=== PATIENT | male | born 1940 | race Caucasian/White ===

== ENCOUNTER → 2019-02-09 | Outpatient (CLI) | payer MEDICARE, BC ==
--- NOTE | 2019-02-09 13:21 | MRI ---
EXAM DESCRIPTION: Lumbar Spine w/o Contrast : Magnetic Resonance Imaging. CLINICAL HISTORY: LOW BACK PAIN COMPARISON: None. TECHNIQUE: Multiplanar, multiple standard sequences, non contrast MRI, lumbar spine. FINDINGS: L5-S1: The disc is well visualized on axial T2 series 501, image 3. Disc is desiccated with minimal disc space loss. Anterior left disc bulge and spur formation. No posterior bulging. Bilateral degenerative hypertrophy in the facet joints and posterior flavum ligaments. Mild canal narrowing. Mild to moderate narrowing of the right foramen and borderline stenosis left foramen abutting the exiting left L5 nerve. Deformity of the left L5 pars interarticularis with a hypointense line noted in the right pars but no separation or displacement. L4-L5: Disc desiccation and disc space loss with moderate endplate reactive changes to the left of midline encroaching on the soft tissues and the left foramen abutting the left L4 nerve. Trace anterolisthesis. Previous partial left laminectomy and decompression. Minimal arthrosis in the residual left posterior facet. Moderate to severe left foraminal narrowing. Mild narrowing left foramen. Effacement of the left subarticular recess encroaching on the descending left L5 nerve. L3-L4: Disc desiccation with anterior bulging and spurs more to the right of midline. Posterior bulge and 3 mm grade 1 anterolisthesis. Moderate degenerative hypertrophy of the posterior elements, left more than right narrowing of the posterior canal. AP canal diameter 9 mm. Mild left foraminal narrowing and mild to moderate right foraminal narrowing. Bilateral subarticular recess narrowing. L2-L3: Disc desiccation with no significant bulging posteriorly. Hyperintense T2 weighted annular fissure in the posterior mid margin. Trace anterolisthesis. Mild degenerative hypertrophy of the posterior elements with mild canal narrowing. Canal patent. Mild bilateral foraminal narrowing. L1-L2: Disc desiccation with anterior bulging and endplate ridging. No posterior bulging. Minimal degenerative hypertrophy of the posterior elements. Canal is patent. No foraminal narrowing. T12-L1: Normal signal in the disc with disc space preserved. Anterior bulging and endplate ridging. No posterior bulging. Mild degenerative hypertrophic posterior elements. Canal and foramina are patent. Conus terminates at this level. L1-L4 levoscoliosis. Paravertebral soft tissues paraspinal muscle atrophy.. Distal cord normal signal and caliber. Normal marrow signal in the remaining vertebral bodies and the posterior elements. Vertebral bodies are not compressed at any level. IMPRESSION: 1. Multiple levels of the desiccated discs, endplate spondylosis, degenerative hypertrophy of the posterior flavum ligaments and facet joints, and degenerative scoliosis. 2. Spondylosis at L5-S1 more superior to the left of midline with borderline left foraminal stenosis, abutting the left L5 nerve. 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 3. Previous partial left laminectomy and decompression at L4-L5. Spondylosis more advanced on the left with disc spur complex encroaching on the soft tissues and abutting the left L4 nerve. Moderate to severe foraminal narrowing. Effacement of the left subarticular recess abutting the descending left L5 nerve. 4. Multifactorial mild central canal stenosis at L3-L4. Mild to moderate right foraminal narrowing. 5. No bulging of the L2-3 disc but posterior midline annular fissure. Electronically signed by: Dank Ospina MD 02/09/2019 1:19 PM [facility]
== END ==
LOC: MRI 07:00
PROVIDERS: ATTEND Family Medicine
DX: M51.36 Other intervertebral disc degeneration, lumbar region (principal); M41.86 Other forms of scoliosis, lumbar region; M47.896 Other spondylosis, lumbar region; M48.061 Spinal stenosis, lumbar region without neurogenic claudication; M47.897 Other spondylosis, lumbosacral region; M48.07 Spinal stenosis, lumbosacral region